=== PATIENT | male | born 1960 | race Caucasian/White ===

== ENCOUNTER 2025-03-05 22:39 | Observation (INO) | payer OTHER, SELFPAY ==
[2025-03-05] VITALS (13 sets, daily range): BP systolic 121–145; BP diastolic 92–112
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
[2025-03-05] MEDS: DILAUDID 1 MG IV ×2 (19:50→22:12)
[2025-03-05 19:58] LABS: Hematocrit 39.3 % (39.0-52.0); Hemoglobin 13.4 g/dL (13.0-18.0); Mean Corp Hgb Conc. 34.1 g/dL (33.0-37.0); Mean Corpuscular Volume 90.8 fL (80.0-94.0); Nucleated Red Blood Cells % 0 % (-); Platelet Count 208 10^3/uL (130-400); Red Cell Dist. Width 12.1 % (11.5-14.5)
[2025-03-05 20:09] LABS: INR 0.93; PT 12.8 Sec (11.4-14.6)
[2025-03-05 20:10] LABS: APTT 24.0 Sec (23.4-35.0)
[2025-03-05 20:14] LABS: ALT (SGPT) 62 U/L (0-50); AST (SGOT) 81 U/L (17-59); Albumin 4.8 g/dl (3.5-5.0); Alkaline Phosphatase 50 U/L (38-126); Blood Urea Nitrogen 20 mg/dl (9-20); Calcium 9.9 mg/dl (8.4-10.2); Carbon Dioxide 24 mmol/L (22-30); Chloride 106 mmol/L (98-107); Glucose 97 mg/dl (70-99); Potassium 4.3 mmol/L (3.5-5.1); Sodium 138 mmol/L (135-145); Total Protein 7.7 g/dl (6.3-8.2); eGFR > 60.00
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
[2025-03-06 00:03] VITALS: BP 171/88; BMI 22.2
--- NOTE | 2025-03-06 00:30 | PTCARENOTE ---
Pt arrived from ED at 23:55 post fall with a Left Humerus Fracture, after a closed reduction in the ED where it was romaine wrapped/dressed, splinted & placed in a sling. Pt's PMH ADHD & current smoker a pack a day, declines a need for a nicotine patch.
Pt AOx3, left upper arm romaine wrapped/dressed, splinted, in a sling and elevated on two pillows, bed in a low position. pain addressed.
[2025-03-06] MEDS: DILAUDID 0.5 MG IV ×3 (01:15→13:34)
[2025-03-06 04:15] VITALS: BP 151/91
[2025-03-06 06:00] VITALS: BMI 22.2
[2025-03-06 06:32] LABS: Hematocrit 38.3 % (39.0-52.0); Hemoglobin 13.1 g/dL (13.0-18.0); Mean Corp Hgb Conc. 34.2 g/dL (33.0-37.0); Mean Corpuscular Volume 91.8 fL (80.0-94.0); Platelet Count 193 10^3/uL (130-400); Red Cell Dist. Width 12.2 % (11.5-14.5)
[2025-03-06 07:02] LABS: ALT (SGPT) 54 U/L (0-50); AST (SGOT) 60 U/L (17-59); Albumin 4.1 g/dl (3.5-5.0); Alkaline Phosphatase 51 U/L (38-126); Blood Urea Nitrogen 19 mg/dl (9-20); Calcium 9.4 mg/dl (8.4-10.2); Carbon Dioxide 25 mmol/L (22-30); Chloride 107 mmol/L (98-107); Estimated Creatinine Clearance 109 ml/min; Glucose 97 mg/dl (70-99); Potassium 4.5 mmol/L (3.5-5.1); Sodium 135 mmol/L (135-145); Total Protein 6.9 g/dl (6.3-8.2); eGFR > 60.00
[2025-03-06] MEDS: TYLENOL 1000 MG PO ×3 (07:29→21:00)
[2025-03-06 07:30] VITALS: BP 164/99
--- NOTE | 2025-03-06 08:30 | W.PN.HOSP.TC ---
Today's Communication/Plan
-
Awaiting ortho input for plan.
Assessment / Plan
Assessment / Plan
64 y/o male without significant past medical history who presented with la displaced left humerus fracture. Fracture was reduced in the emergency department and splint was placed. Unfortunately patient did not have anyone that can monitor him
overnight after receiving moderate sedation.
A/P
1. Left Humerus Fracture
Patient requires observation following moderate sedation
This am he reports not being able to do ADLs without help and opioid pain control
-Continue Non-Weight Bearing LUE
-Continue Immobilization with sling
-Continue Tylenol 1000mg TID
-Continue Toradol for mild pain, Oxycodone for moderate pain and Dilaudid for severe pain
Ortho to see this am. Please advise if patient is appropriate for DC home or will need to stay in hospital until surgery can be performed
VCD for DVTp
Anticipated Discharge: 24 - 48 hours
Subjective/Interval History
-
Date of Service: March 06, 2025
Has severe pain when he moves his torso or changes position.
Objective Data
-
Labs:
Laboratory Results
03/06/25
06:24
WBC 9.3
Hgb 13.1
Hct 38.3 L
Plt Count 193
Sodium 135
Potassium 4.5
Chloride 107
Carbon Dioxide 25
BUN 19
Creatinine 0.7
Glucose 97
Calcium 9.4
Total Bilirubin 0.9
AST 60 H
ALT 54 H
Alkaline Phosphatase 51
Vital Signs:
Vital Signs
Temp Pulse Resp BP Pulse Ox
98.3 F 51 16 164/99 99
03/06/25 07:30 03/06/25 07:30 03/06/25 07:30 03/06/25 07:30 03/06/25 07:30
I&O
03/05/25 03/06/25 03/07/25
06:59 06:59 06:59
Intake Total 360 / 360
Balance 360 / 360
Review of Systems
-
History Source: Patient
All other systems: Reviewed and negative
Physical Exam
-
General: Well Developed, Well Nourished, No Apparent Distress, Comfortable and Conversant
HEENT: Normocephalic, Atraumatic, Moist Mucous Membranes, Nose Appears Normal and Ears Appear Normal
Respiratory: Clear to Auscultation
Cardiac: Regular Rhythm and S1/S2
GI: Soft, Nontender and Nondistended
Musculoskeletal: No Clubbing, No Cyanosis and No Edema
Skin: Warm and Dry
Neuro: Awake, Alert and Oriented
Psych: Calm
Data Reviewed
-
Labs: Labs Reviewed by me
[2025-03-06] MEDS: ROXICODONE 5 MG PO ×3 (09:49→21:10)
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
--- NOTE | 2025-03-06 13:42 | CM ---
Patient seen at bedside on . Patient states that he is visiting his sister from [place]. Patient does not currently have insurance and is awaiting [facility]. Patient did have insurance when he lived in [place] prior to moving to [place].
Patient currently visiting his sister and declined home VN at this time. CM offered list of physicians for PCP but patient also declined. Patient indicated that he has no DME and has not needed VN or SNF in the past. CM will continued to follow for
discharge planning needs.
Plan; home with no needs.
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
[2025-03-06 15:43] VITALS: BP 141/89
[2025-03-06 23:08] VITALS: BP 148/86
[2025-03-07] MEDS: ROXICODONE 5 MG PO ×2 (04:15→09:18)
[2025-03-07 07:29] LABS: Hematocrit 39.8 % (39.0-52.0); Hemoglobin 13.9 g/dL (13.0-18.0); Mean Corp Hgb Conc. 34.9 g/dL (33.0-37.0); Mean Corpuscular Volume 90.9 fL (80.0-94.0); Platelet Count 184 10^3/uL (130-400); Red Cell Dist. Width 12.2 % (11.5-14.5)
[2025-03-07] MEDS: TYLENOL 1000 MG PO (07:37)
[2025-03-07] MEDS: DILAUDID 0.5 MG IV (07:38)
[2025-03-07 07:51] VITALS: BP 157/97
[2025-03-07 08:11] LABS: ALT (SGPT) 49 U/L (0-50); AST (SGOT) 51 U/L (17-59); Albumin 4.1 g/dl (3.5-5.0); Alkaline Phosphatase 49 U/L (38-126); Blood Urea Nitrogen 16 mg/dl (9-20); Calcium 9.5 mg/dl (8.4-10.2); Carbon Dioxide 25 mmol/L (22-30); Chloride 106 mmol/L (98-107); Estimated Creatinine Clearance > 125 ml/min; Glucose 101 mg/dl (70-99); Potassium 4.5 mmol/L (3.5-5.1); Sodium 136 mmol/L (135-145); Total Protein 6.9 g/dl (6.3-8.2); eGFR > 60.00
--- NOTE | 2025-03-07 10:55 | CM ---
Patient seen at bedside with sister on . Patient to follow up with [facility] for insurance application as patient does not have any current insurance. phone number given to nursing for use on the discharge information and message left with [facility]
regarding patient need. OBS form completed and signed form placed on chart. CM will continue to follow for discharge planning needs.
Plan; home with sister; follow up with surgery
== END 2025-03-07 10:15 | disposition home or self-care (01) ==
LOC: 2 SOUTH 22:39
PROVIDERS: Physician Assistant Medical; ADMITTING PHYSICIAN Hospitalist; ATTENDING PHYSICIAN Internal Medicine; CONSULT PHYSICIAN Orthopaedic Surgery; EMERGENCY PHYSICIAN Student in an Organized Health Care Education/Training Program
DX: S42.302A Unspecified fracture of shaft of humerus, left arm, initial encounter for closed fracture (principal); V29.99XA Rider (driver) (passenger) of other motorcycle injured in unspecified traffic accident, initial encounter; Y93.89 Activity, other specified; Y92.414 Local residential or business street as the place of occurrence of the external cause; Z98.890 Other specified postprocedural states; Z90.49 Acquired absence of other specified parts of digestive tract; M19.012 Primary osteoarthritis, left shoulder; F17.210 Nicotine dependence, cigarettes, uncomplicated; F12.90 Cannabis use, unspecified, uncomplicated
CPT/HCPCS: 24505; 73060; 73080; 80053; 82248; 85025; 85027; 85610; 85730; 86850; 86900; 86901; 96374; 96376; 97166; 99152; 99285; 99406; G0378